=== PATIENT | female | born 1995 | race Caucasian/White ===

== ENCOUNTER 2021-08-19 12:29 | Inpatient (IN) | payer OTHER ==
[2021-08-19] MEDS ORDERED: BISMUTH SUBSALICYLATE 262 MG/15 ML BTL PO PRN (13:08)
[2021-08-19] MEDS ORDERED: MAGNESIUM CITRATE 300 ML BOTTLE PO PRN (13:08)
[2021-08-19] MEDS ORDERED: MAGNESIUM HYDROX 2400MG/30ML ORAL SUSPENSION 30 ML CUP PO PRN (13:08)
[2021-08-19] MEDS ORDERED: LOPERAMIDE HCL 2 MG CAPSULE PO PRN (13:08)
[2021-08-19] MEDS ORDERED: ONDANSETRON *ODT* 4 MG TABLET SL PRN (13:08)
[2021-08-19] MEDS ORDERED: MENTHOL/PHENOL 1 EACH UD MM PRN (13:08)
[2021-08-19] MEDS ORDERED: ACETAMINOPHEN 325 MG TABLET (FP) PO PRN ×2 (13:08)
[2021-08-19] MEDS ORDERED: MAG HYDROX/AL HYDROX/SIMETH 30 ML UNIT-DOSE CUP PO PRN (13:08)
[2021-08-19 13:36] VITALS: BMI 22.8
[2021-08-19] MEDS ORDERED: hydrOXYzine PAMOATE 25 MG CAPSULE (FP) PO SCH (14:00)
[2021-08-19] MEDS: chlordiazePOXIDE HCL 25 MG CAPSULE PO PRN (15:46)
[2021-08-19] MEDS: NICOTINE 14 MG/24 HOURS TOPICAL PATCH TD SCH (15:47)
[2021-08-19] MEDS: PRENATAL VITAMINS W/ FOLIC ACID TABLET (FP) PO SCH (15:48)
[2021-08-19] MEDS: chlordiazePOXIDE HCL 25 MG CAPSULE PO SCH ×2 (17:40→22:15)
[2021-08-19 18:08] LABS: HEMATOCRIT 33.6 % (32.4-45.2); HEMOGLOBIN 11.3 GM/dL (10.7-15.3); MCH 32.9 pg (25.7-33.7); MCHC 33.7 g/dl (32.0-36.0); MEAN CELL VOLUME 97.6 fl (80-96); MEAN PLT VOLUME 8.1 fl (7.5-11.1); PLATELET COUNT 228 10^3/uL (134-434); RBC 3.45 M/mm3 (3.60-5.2); RDW 15.6 % (11.6-15.6); WHITE BLOOD COUNT 4.6 K/mm3 (4.0-10.0)
[2021-08-19] MEDS: NICOTINE 10 MG CARTRIDGE (INHALER) IH PRN ×2 (18:16→22:17)
[2021-08-19 18:17] LABS: CALCIUM 8.6 mg/dL (8.5-10.1)
[2021-08-19 18:18] LABS: ALBUMIN 3.6 g/dl (3.4-5.0)
[2021-08-19 18:21] LABS: CREATININE 0.8 mg/dL (0.55-1.3)
[2021-08-19 18:22] LABS: TOT PROT 7.2 g/dl (6.4-8.2)
[2021-08-19 18:23] LABS: BILIRUBIN,TOTAL 0.3 mg/dL (0.2-1)
[2021-08-19] MEDS: THIAMINE HCL 100 MG TABLET (FP) PO SCH (22:14)
[2021-08-19] MEDS: NYSTATIN 500,000 UNITS TABLET PO SCH (22:14)
[2021-08-19] MEDS: MELATONIN 5 MG TABLETS PO SCH (22:14)
[2021-08-20] MEDS: chlordiazePOXIDE HCL 25 MG CAPSULE PO SCH ×4 (05:48→22:45)
[2021-08-20] MEDS: NYSTATIN 500,000 UNITS TABLET PO SCH ×3 (05:49→22:44)
[2021-08-20] MEDS: NICOTINE 10 MG CARTRIDGE (INHALER) IH PRN ×3 (05:51→22:47)
[2021-08-20] MEDS: NICOTINE 14 MG/24 HOURS TOPICAL PATCH TD SCH (10:45)
[2021-08-20] MEDS: hydrOXYzine PAMOATE 25 MG CAPSULE (FP) PO PRN (10:46)
[2021-08-20] MEDS: PRENATAL VITAMINS W/ FOLIC ACID TABLET (FP) PO SCH (10:46)
[2021-08-20] MEDS: METHOCARBAMOL 500 MG TABLET PO PRN (10:48)
[2021-08-20] MEDS ORDERED: cloNIDine HCL 0.1 MG TABLET PO ONE (11:44)
[2021-08-20] MEDS: MELATONIN 5 MG TABLETS PO SCH (22:44)
[2021-08-20] MEDS: THIAMINE HCL 100 MG TABLET (FP) PO SCH (22:44)
[2021-08-21] MEDS: chlordiazePOXIDE HCL 25 MG CAPSULE PO SCH ×4 (06:30→22:40)
[2021-08-21] MEDS: NYSTATIN 500,000 UNITS TABLET PO SCH ×3 (06:30→22:40)
[2021-08-21] MEDS: hydrOXYzine PAMOATE 25 MG CAPSULE (FP) PO PRN (10:21)
[2021-08-21] MEDS: PRENATAL VITAMINS W/ FOLIC ACID TABLET (FP) PO SCH (10:21)
[2021-08-21] MEDS: IBUPROFEN 400 MG TABLET (FP) PO PRN ×2 (10:23→17:23)
[2021-08-21] MEDS: NICOTINE 10 MG CARTRIDGE (INHALER) IH PRN ×4 (10:24→22:41)
[2021-08-21] MEDS: NICOTINE 14 MG/24 HOURS TOPICAL PATCH TD SCH (11:01)
[2021-08-21 14:08] LABS: SARS-CoV-2 NAA Not Detected (Not Detected)
[2021-08-21] MEDS: chlordiazePOXIDE HCL 25 MG CAPSULE PO PRN (15:00)
[2021-08-21] MEDS: THIAMINE HCL 100 MG TABLET (FP) PO SCH (22:40)
[2021-08-21] MEDS: MELATONIN 5 MG TABLETS PO SCH (22:40)
[2021-08-22] MEDS ORDERED: chlordiazePOXIDE HCL 10 MG CAPSULE PO PRN
[2021-08-22] MEDS: chlordiazePOXIDE HCL 10 MG CAPSULE PO SCH ×4 (05:26→22:14)
[2021-08-22] MEDS: NYSTATIN 500,000 UNITS TABLET PO SCH ×3 (05:27→22:15)
[2021-08-22] MEDS: NICOTINE 10 MG CARTRIDGE (INHALER) IH PRN ×3 (10:12→20:29)
[2021-08-22] MEDS: PRENATAL VITAMINS W/ FOLIC ACID TABLET (FP) PO SCH (10:13)
[2021-08-22] MEDS: NICOTINE 14 MG/24 HOURS TOPICAL PATCH TD SCH (10:14)
[2021-08-22] MEDS: hydrOXYzine PAMOATE 25 MG CAPSULE (FP) PO PRN ×2 (17:41→22:15)
[2021-08-22] MEDS: THIAMINE HCL 100 MG TABLET (FP) PO SCH (22:15)
[2021-08-22] MEDS: MELATONIN 5 MG TABLETS PO SCH (22:15)
[2021-08-22] MEDS: METHOCARBAMOL 500 MG TABLET PO PRN (22:16)
[2021-08-23] MEDS: chlordiazePOXIDE HCL 10 MG CAPSULE PO SCH ×2 (06:22→17:23)
[2021-08-23] MEDS: NYSTATIN 500,000 UNITS TABLET PO SCH ×3 (06:23→22:12)
[2021-08-23] MEDS: NICOTINE 10 MG CARTRIDGE (INHALER) IH PRN ×3 (10:10→18:23)
[2021-08-23] MEDS: hydrOXYzine PAMOATE 25 MG CAPSULE (FP) PO PRN ×3 (10:11→22:14)
[2021-08-23] MEDS: NICOTINE 14 MG/24 HOURS TOPICAL PATCH TD SCH (10:13)
[2021-08-23] MEDS: PRENATAL VITAMINS W/ FOLIC ACID TABLET (FP) PO SCH (10:13)
[2021-08-23] MEDS: IBUPROFEN 400 MG TABLET (FP) PO PRN (17:20)
[2021-08-23] MEDS: METHOCARBAMOL 500 MG TABLET PO PRN (22:12)
[2021-08-23] MEDS: THIAMINE HCL 100 MG TABLET (FP) PO SCH (22:12)
[2021-08-23] MEDS: MELATONIN 5 MG TABLETS PO SCH (22:12)
[2021-08-24] MEDS ORDERED: chlordiazePOXIDE HCL 10 MG CAPSULE PO ONE (05:00)
[2021-08-24] MEDS: NYSTATIN 500,000 UNITS TABLET PO SCH (06:26)
[2021-08-24] MEDS: NICOTINE 10 MG CARTRIDGE (INHALER) IH PRN (06:39)
[2021-08-24 08:33] VITALS: BP 118/63; PULSE 72; TEMP 98.2
== END 2021-08-24 09:29 | disposition home or self-care (01) | DRG 774 ==
LOC: YASAS 12:29 → Y3N 15:04
PROVIDERS: ADMIT Allergy & Immunology; ATTEND Allergy & Immunology
PROC: HZ2ZZZZ Detoxification Services for Substance Abuse Treatment (ICD-10-PCS; principal; 2021-08-19)
DX: F10.230 Alcohol dependence with withdrawal, uncomplicated (principal); F14.10 Cocaine abuse, uncomplicated; F17.210 Nicotine dependence, cigarettes, uncomplicated; F19.24 Other psychoactive substance dependence with psychoactive substance-induced mood disorder; I10 Essential (primary) hypertension; B37.0 Candidal stomatitis; G89.29 Other chronic pain; M79.604 Pain in right leg; R73.9 Hyperglycemia, unspecified; Z88.0 Allergy status to penicillin
CPT/HCPCS: 36415; 80053; 82962; 83036; 84703; 85027; 86780; 93005; 93010; C9803-CS; J0735; Q0162; U0003; U0005